=== PATIENT | female | born 1950 | race Caucasian/White ===

== ENCOUNTER 2018-11-15 22:40 | Emergency (ER) | payer MEDICARE, OTHER ==
[~2018-11-15] VITALS: Ht 160 cm; Wt 122.5 kg
[2018-11-15] MEDS ORDERED: VALS80 (22:58)
[2018-11-15] MEDS ORDERED: Azor 5-20 MG T1 EACH (22:58)
[2018-11-15] MEDS ORDERED: BYDUREON B2 MG/0.85 (22:58)
[2018-11-15] MEDS ORDERED: ASPI81CH (22:58)
[2018-11-15] MEDS ORDERED: IBU600 MG (22:59)
[2018-11-15] MEDS ORDERED: IBUP600 PO (23:50)
== END 2018-11-16 01:21 | disposition home or self-care (01) ==
LOC: ER 22:40
DX: S83.92XA Sprain of unspecified site of left knee, initial encounter (principal); X50.9XXA Other and unspecified overexertion or strenuous movements or postures, initial encounter; Z88.5 Allergy status to narcotic agent; Z88.1 Allergy status to other antibiotic agents; Z79.899 Other long term (current) drug therapy; Z79.82 Long term (current) use of aspirin
CPT/HCPCS: 29505; 36415; 73562-LT; 96374-59; 96375-59; 99283-25; A9270; J1885; J3010